=== PATIENT | male | born 1975 | race Caucasian/White ===

== ENCOUNTER 2025-05-28 09:22 | Emergency (ER) | payer OTHER, SELFPAY ==
[2025-05-28 09:28] VITALS: BP 143/99; PULSE 76; O2SAT 97
[2025-05-28 09:30] VITALS: BP 136/98; BP 143/99; PULSE 75; PULSE 76; RESP 18; TEMP 36.7; O2SAT 98; O2SAT 99; BMI 32.1
--- NOTE | 2025-05-28 09:34 | HMH.EDGENADL ---
Discharge Plan Disposition Patient Disposition: Home, Self-Care Referrals Follow up/Referrals: Kati Trujillo APRN [Primary Care Provider, Medical] - See instructions Activity Restrictions/Add. Instructions Additional Instructions/Restrictions: The stitches will need to stay in for 10 to 14 days. They can be removed by your primary care doctor, urgent treatment center or in the emergency department. If you develop any signs of infection, such as pus draining from the wound, increased redness or swelling, fever, return to the emergency department for evaluation. Keep the wound clean by using gentle soap and water. You can shower normally. While at work, wear a Band-Aid over the wound and gloves. Clinical Impressions Clinical Impression: Finger laceration Instructions Patient Instructions: DI for Laceration Repair Print Language Print Language: Tanzanian Discharge ED Provider: Justino Good Adult HPI General Chief complaint: Wound/Laceration Stated complaint: [id number]- Laceration to L pinky Time Seen by Provider: 05/28/25 09:29 Mode of Arrival: Ambulatory Source of Information: Patient Description of Symptoms (Recalled from ER Triage Doc. by RN): Patient reports cutting his right ring finger with a utility knife at work. History of Present Illness HPI narrative: Leonel Boateng is a 49-year-old male with a history of mechanical heart valve on warfarin who presents to the emergency department for a laceration to his left pinky finger. Patient states that 30 minutes prior to arrival, he was using a dye box operator to cut zip ties when excellently cut the tip of his left pinky finger. He denies any numbness or tingling. Bleeding is controlled at this time with pressure. He feels like he is moving his finger appropriately. He denies any other injuries or trauma. Related Data Allergies Allergy/AdvReac Type Severity Reaction Status Date / Time No Known Allergies Allergy Verified 05/28/25 09:33 [facility] Disclaimer: The information contained in this section may have been updated after the patient was seen, as this information can be updated by other users. Social History Smoking Status: Never smoker alcohol intake: never current occupational status: employed Travel in the last 8 weeks?: None ROS Obtained: Yes Systems reviewed as appropriate & no additional complaints except as documented Physical Exam General General appearance: alert and in no apparent distress Head Head exam: atraumatic Eye Eye exam: Present normal appearance ENT ENT exam: Present normal external ear exam Neck Neck exam: Present full ROM Chest Chest inspection: Present symmetric chest wall rise Respiratory Respiratory exam: Present normal lung sounds bilaterally; Absent respiratory distress Cardiovascular Cardiovascular exam: Present regular rate and normal rhythm Abdominal Exam Abdominal exam: Present soft; Absent tenderness or guarding exam: Present deferred Extremities Exam Extremities exam: Present normal inspection Expanded Upper Extremity Exam Left: Hand L/R front image:  1. laceration (3cm, linear, hemostatic) Comment: LUE: Full range of motion of the pinky finger with flexion and extension at all joint spaces. 3 cm laceration over the distal phalanx but bleeding is controlled. Less than 2-second capillary refill distally. Back Exam Back exam: Present normal inspection Neurological Exam Neurological exam: Present alert and oriented X3 Psychiatric Psychiatric exam: Present normal affect Skin Skin exam: Present warm and dry Medical Decision Making Medical Records Screening: Per USPSTF and CDC recommendations, given the prevalence of disease in our region, it is our hospital?s policy to screen for HIV and viral Hepatitis for all patients aged 18 and over and those with ongoing risk factors. [place] Inquiry Pt receiving controlled substance: No Vital Signs: 05/28/25 09:28 05/28/25 09:30 05/28/25 09:30 Temperature 98.0 F Temperature Source Oral Pulse Rate 76 76 Pulse Rate [Radial] 75 Respiratory Rate 18 Blood Pressure 143/99 H 136/98 H Blood Pressure [Right Arm] 143/99 H Blood Pressure Mean [Right Arm] 113 Blood Pressure Source [Right Arm] Automatic Cuff Blood Pressure Position [Right Arm] Sitting 02 Sat by Pulse Oximetry 97 99 98 Oxygen Delivery Method Room Air Room Air Room Air Orders (Tests/Meds): ED MEDICATIONS Discontinued Medications Generic Name Dose Route Start Last Admin Trade Name Freq PRN Reason Stop Dose Admin Lidocaine HCl 20 ml 05/28/25 09:34 05/28/25 09:45 Lidocaine 1% 20ml Mdv IJ 05/28/25 09:35 20 ml ONCE ONE Administration Tetanus/Reduced Diphtheria/Acell Pertussis 0.5 ml 05/28/25 09:33 05/28/25 09:45 Tet/Diphth/Pert-Adult 0.5ml Syringe IM 05/28/25 09:34 0.5 ml .ONCE ONE Administration Medical Decision Narrative: Leonel Boateng is a 49-year-old male with a history of mechanical heart valve on warfarin who presents to the emergency department for a laceration to his left pinky finger. Patient states that 30 minutes prior to arrival, he was using a dye box operator to cut zip ties when excellently cut the tip of his left pinky finger. He denies any numbness or tingling. Bleeding is controlled at this time with pressure. He feels like he is moving his finger appropriately. He denies any other injuries or trauma. On arrival, patient is hemodynamically stable, in no acute distress, breathing comfortably on room air. Physical exam, as stated above, revealed an overall well-appearing male in no distress. He has an approximately 3 cm laceration to the distal phalanx of the left pinky finger. Flexor and extension function is intact. Bleeding is controlled at this time. No other injuries are noted. X-ray imaging was considered, however there is low concern for any retained foreign body or fracture. Will clean the wound with Hibiclens and anesthetized using a digital nerve block with 1% lidocaine. Patient's wound was repaired using 5-0 nylon sutures. A total of 6 sutures were placed. See procedure note for details. Hemostasis was noted. Given this, I do feel the patient is appropriate for discharge at this time. Return precautions were given for any evidence of infection. All questions were answered. He demonstrated understanding and was in agreement with this plan. He was then discharged from the emergency department in stable condition peer Procedures Laceration Laceration 1: Site: finger Side (If applicable): left Size (cm): 3 Description: linear Depth: simple, single layer Local Anesthetic: lidocaine 1% Amount of anesthesia used (mL): 4 Pre-repair: irrigated extensively and deep structures intact Skin layer closed with: nylon Size (cm): 5-0 Number of sutures: 6 Technique: simple, interrupted Nerve Block Nerve Block 1: Local Anesthetic: lidocaine 1% Amount of anesthesia used (mL): 4 Side: Left Nerve Blocks: digital Procedure Successful: Yes Patient Tolerated Procedure: well Complications: none Critical Care Critical Care Time Critical Care Time: No
[2025-05-28] MEDS: LIDOCAINE 1% 20ML MDV 20 ML IJ (09:45)
[2025-05-28] MEDS: TET/DIPHTH/PERT-ADULT 0.5ML SYRINGE 0.5 ML IM (09:45)
[2025-05-28 10:03] VITALS: BP 136/98; PULSE 72; RESP 16; TEMP 36.6; O2SAT 98
--- OUTSIDE RECORDS SUMMARY | 2025-05-28 10:03 | XMS_ITS | Clinical Summary ---
Author Organization [facility] Address [address] [place] [address] Phone Care Team Providers Care Shingles Roofer Helper Name Role Phone Guillaume RIVAS, Santi Herbert [phone] Conditions or Problems Problem Name Problem Code Onset Date Status Entry Date Provider Comment Standard Description Annotate SPONDYLOSIS, CERVICAL 810408653 (SNOMED CT) 08/19 Active 08/19 Katerin Montoya MA Cervical spondylosis CARPAL TUNNEL SYNDROME 99006786 (SNOMED CT) 08/19 Active 08/19 Katerin Montoya MA Carpal tunnel syndrome ARTHROPATHY OF CERVICAL FACET 559217407 (SNOMED CT) 08/01 Active 08/01 Jessy Corona CONCERT MANAGER Arthropathy of cervical spine facet joint ULNAR NEUROPATHY, RIGHT 004986821 (SNOMED CT) 08/01 Active 08/01 Olga Sullivan MA Ulnar neuropathy OVERWEIGHT 711679803 (SNOMED CT) 08/01 Active 08/01 Olga Sullivan MA Overweight SPINAL STENOSIS, LUMBAR 78193608 (SNOMED CT) 11/05 Active 11/05 Qamar Pyle MA Spinal stenosis of lumbar region HERNIATED LUMBAR DISC 576776851 (SNOMED CT) 09/01 Active 09/01 Diana Alexandra Prolapsed lumbar intervertebral disc History of HEART VALVE REPLACEMENT, HX OF Z98.89 (ICD-10-CM) 09/01 Active 09/01 Diana Alexandra Other specified postprocedural states Medications Medication Instructions Start Date Stop Date Generic Name NDC Provider WARFARIN SODIUM 5 MG TABS warfarin 29840237826 Olga Sullivan MA TYLENOL 8 HOUR ARTHRITIS PAIN 650 MG CR-TABS acetaminophen 18388534317 Olga Sullivan MA COUMADIN TABLET Non-Boateng 2 WARFARIN SODIUM TABS 20105351076 Diana Alexandra Medications Administered No information available. Allergies, Adverse Reactions, Alerts Observed no known allergies at Results No information available. Plan of Care Type Date Detail Pending order EMG Right Arm wi th nerve conduction Pending order RANCHO Series = 1.3 Injections Procedures Code Procedure Name Date Entry Date 01362 EMG w/ NCS, Complete, 1 Extremity CPT-540 68 2565/01/20 73393 Nerve Conduction Anthony dy (3-4 studies) CPT-93140 [facility]-[id number] Medications Documented 1124F No ACP/POA documented but discussed 11/05 G8483 No flu shot received; allergy etc. 11/05 9984Q3S No pneumococcal vaccine received; no reas on 1036F No tobacco use currently 201 01/02/08 G8417 BMI above normal, f/u plan documented 201 01/02/08 G8730 Pain Assessment posi tive with follow up plan G8427 Medication Reconcili ation Completed CPT-G8427 Vital Signs Date Name Value Unit Description BMI (Body Mass Index) 30.81 kg/m2 Bod y Mass Index (Ratio) Height 74 [in_us] height E&M Weight Measured 240 [lb_av] weight E& M Weight Measured 240 [lb_av] weight E& M BP Diastolic 74 mm[Hg] blood pressu re, diastolic BP Systolic 106 mm[Hg] blood pressur e, systolic Heart Rate 66 /min pulse rate Body Temperature 97.6 [degF] temperat ure E&M Immunizations No information available. Advance Directives No information available.
--- OUTSIDE RECORDS SUMMARY | 2025-05-28 10:04 | XMS_ITS | Clinical Summary ---
Author Organization [facility] Address [address] [place] [address] Care Team Providers Care Mottler Machine Feeder Name Role Phone Unavailable Primary Care Provider Unavailabl e Social History Tobacco Use Types Packs/Day Years Used Date Smoking Tobacco: Never Assessed Sex and Gender Information Value Date Recorded Sex Assigned at Not on file Legal Sex Male 9:48 PM EDT Gender Identity Not on file Sexual Orientation Not on file Plan of Treatment Health Maintenance Due Date Last Done Comments DTap,Tdap,and Td (1 - Tdap) 12/27/1986 Colonoscopy 12/27/2020 Influenza Vaccine (#1) 2025 RSV Vaccine (60+ or ) (1 - 1-dose 75+ series) 12/27/2050 HPV Aged Out No longer eligi ble based on patient's age to complete this topic Meningococcal conjugate leyda nt 4 (MCV4) Aged Out No longer eligible b ased on patient's age to complete this topic Pneumococcal 0-49 Aged Out No longer eligible based on patient's age to complete this topic RSV Immunization (<20 months) Aged Out No longer eligible based on patient's age to complete this topic
--- OUTSIDE RECORDS SUMMARY | 2025-05-28 10:04 | XMS_ITS | Clinical Summary ---
Author Organization [facility] Address [facility] [place] [address] Care Team Providers Care Assembler Lay Ups Name Role Phone Pcp, No Primary Care Provider [phone] Source Comments This information has been disclosed to you from confidential records protectedfrom disclosure by state law. You shall make no further disclosure of thisinformation without the specific, written, and informed release of theindividual to whom it pertains, or as otherwise permitted by law. A generalauthorization for the release of medical or other information is not sufficientfor the purposes of therelease of HIV test results or diagnoses. 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 and chronic sternal and somewhat clavicle pain since then 09/14/2024 Nonrheumatic aortic valve stenosis 09/14/2024 History of stroke 09/14/2024 Social History Tobacco Use Types Packs/Day Years Used Date Smoking Tobacco: Never Assessed Sex and Gender Information Value Date Recorded Sex Assigned at Not on file Legal Sex Male 7:48 PM EST Gender Identity Not on file Sexual Orientation Not on file Plan of Treatment Health Maintenance Due Date Last Done Comments Abnormal Colonoscopy Follow Up 1975 Echocardiogram 1975 Hepatitis C Screening (MyChart) 1975 Alcohol Misuse Screening 12/27/1993 Depression Screening 12/27/1993 HIV Screening 12/27/1993 Immunization: Hepatitis B (1 of 3 - 19+ 3-dose series) 12/27/1994 Colonoscopy 12/27/2020 Stool Testing (gFOBT) 12/27/2020 Cologuard (FIT-DNA) 06/22/2024 06/22/2021 Colorectal Cancer Screening (MyChart) 06/22/2024 Immunization: COVID-19 ( season) 2025 06/04/2021, 10/09/2020 Immunization: Influenza (MyChart) (#1) 2025 05/01/2024, 05/10/2023, 05/20/2022, Additional history exists Immunization: DTaP/Tdap/Td (3 - Td or Tdap) 09/11/2029 09/11/2019, 11/23/2018 Immunization: Pneumococcal Aged Out N o longer eligible based on patient's age to complete this topic Insurance BLUE ACCESS Care Teams Assembler Lay Ups Relationship Specialty Start Date End Date Pcp, No [address] [place] [address] PCP - General 09/13/24
== END 2025-05-28 10:07 | disposition home or self-care (01) ==
PROVIDERS: Emergency Provider Student in an Organized Health Care Education/Training Program; PCP Nurse Practitioner
DX: S61.214A Laceration without foreign body of right ring finger without damage to nail, initial encounter (principal); W26.8XXA Contact with other sharp object(s), not elsewhere classified, initial encounter; Z86.79 Personal history of other diseases of the circulatory system; Z79.01 Long term (current) use of anticoagulants; Z95.5 Presence of coronary angioplasty implant and graft
CPT/HCPCS: 12002; 90471; 90715; 99283; 99284; J2003